=== PATIENT | male | born 1960 | race African-American/Black ===

== ENCOUNTER 2024-09-16 07:17 | Outpatient (CLI) | payer OTHER, SELFPAY ==
--- NOTE | ~2024-09-16 | XR_ITS ---
EXAMINATION: XR chest 2V DATE: 09/16/2024 07:54 INDICATION: Cough and shortness of breath. Fever. COVID-19 positive. TECHNIQUE: Frontal and lateral views of the chest were obtained. COMPARISON: Chest 2 views 12/27/2009 FINDINGS: There are mild airspace opacities in right midlung zone. No pleural effusion or pneumothora x. The heart size is normal. IMPRESSION: 1. Mild airspace opacities in right midlung zone, consistent with pneumonia. Reviewed, dictated and finalized at location B.
== END 2024-09-16 07:18 | disposition home or self-care (01) ==
PROVIDERS: PCP Family Medicine; Visit Provider Family Medicine
DX: U07.1 COVID-19 (principal); R91.8 Other nonspecific abnormal finding of lung field
CPT/HCPCS: 71046

== ENCOUNTER 2025-01-10 15:55 | Outpatient (CLI) | payer OTHER, SELFPAY ==
--- NOTE | ~2025-01-10 | XR_ITS ---
EXAM: XR foot RT min 3V DATE: 01/10/2025 16:52 HISTORY: Chronic foot pain, right . COMPARISON: None available. FINDINGS: Decreased mineralization. No fracture or dislocation. No lytic or blastic lesion. Moderate hallux valgus. Moderate degenerative change at the first MTP joint and multiple midfoot joints. Vasc ular calcifications. Mild Achilles and plantar enthesopathy Flattening of the second metatarsal head. No erosion or periosteal change. Soft tissues within normal limits. IMPRESSION: Osteopenia. Moderate polyarticular osteoarthritis of the foot, most pronounced at the fir st MTP joint. Chronic appearing second metatarsal head flattening, may be secondary to degenerative c hange or Freiberg's infraction. Reviewed, dictated and finalized at location K. [employer] IMPRESSION: Osteopenia. Moderate polyarticular osteoarthritis of the foot, most pronounced at the first MTP joint. Chronic appearing second metatarsal head fl attening, may be secondary to degenerative change or Freiberg's infraction.
== END 2025-01-10 15:56 | disposition home or self-care (01) ==
PROVIDERS: PCP Family Medicine; Visit Provider Family Medicine
DX: M85.871 Other specified disorders of bone density and structure, right ankle and foot (principal); M77.41 Metatarsalgia, right foot; M79.671 Pain in right foot; G89.29 Other chronic pain
CPT/HCPCS: 73630

== ENCOUNTER 2025-09-08 15:45 | Outpatient (CLI) | payer OTHER, SELFPAY ==
--- NOTE | ~2025-09-08 | XR_ITS ---
EXAMINATION: XR foot RT min 3V, 09/08/2025 15:54 CDT HISTORY: Pain in right ankle and joints of right foot COMPARISON: No comparisons available. Findings: Deformity noted of the second metatarsal head probable sequelae of remote fracture, no acute fracture is identified Severe degenerative changes of the first metatarsal phalangeal joint. Soft tissues unremarkable. Impression: No acute fracture or malalignment. Reviewed, dictated and finalized at location P. Impression: No acute fracture or malalignment.
== END 2025-09-08 15:46 | disposition home or self-care (01) ==
LOC: MICIMG 15:49
PROVIDERS: PCP Family Medicine; Visit Provider Podiatrist Foot & Ankle Surgery
DX: M25.571 Pain in right ankle and joints of right foot (principal); S92.321S Displaced fracture of second metatarsal bone, right foot, sequela; X58.XXXS Exposure to other specified factors, sequela; M19.071 Primary osteoarthritis, right ankle and foot
CPT/HCPCS: 73630